=== PATIENT | female | born 1990 | race Caucasian/White ===

== ENCOUNTER 2021-11-09 11:40 | Emergency (ER) | payer MEDICAID, SELFPAY ==
[2021-11-09 11:41] VITALS: BP 162/93; PULSE 133; RESP 18; TEMP 36.3; O2SAT 98; BMI 24.8
--- NOTE | 2021-11-09 12:04 | US_ITS ---
STUDY: FIRST TRIMESTER OBSTETRICAL ULTRASOUND REASON FOR EXAM: Female, 31 years old preg, bleeding LMP: Unknown TECHNIQUE: Transvaginal TECHNICAL QUALITY: Adequate. PRIOR ULTRASOUND: None. FINDINGS: There is visualization of a single gestational sac in a normal intrauterine position. The mean sac diameter (MSD) measures 1.64 cm, indicating an estimated gestational age (EGA) of 6 weeks, 4 days. The gestational sac shape is within normal limits. There is a visualized yolk sac. The yolk sac measures 3 mm. The placenta is non-visualized. There is visualization of a live embryo. The crown-rump length (CRL) measures 6 mm, indicating an estimated gestational age (EGA) of 6 weeks, 3 days. There is demonstrated cardiac activity with a heart rate of 122 bpm. The estimated gestation age (EGA) by US is 6 weeks, 4 days. The estimated date of delivery (REBECCA) by US is 07/01/2022. The uterus measures 9.1 cm x 6.9 cm x 5.3 cm. There is no demonstrated uterine fibroid. The cervix is closed. The right ovary measures 5.8 cm x 3.3 cm x 2.2 cm. There is a 2.2 cm x 2.4 cm x 2.6 cm right ovarian cyst. There is no visualized right adnexal mass or complex lesion. The left ovary measures 3.2 cm x 2.4 cm x 1.8 cm. There is no left ovarian cyst. There is no visualized left adnexal mass or complex lesion. There is no fluid in the cul de sac. US/Transvaginal w/Preg US IMPRESSION: Single live intrauterine gestation with mean gestational age of 6 weeks and 4 days. There is a 2.2 cm x 2.4 sono a 2.6 cm right ovarian cyst. Electronically Signed: Karel Morris MD at 14:51 EDT ,
--- NOTE | 2021-11-09 12:05 | ED.VIS.FEGU ---
HPI HPI - Female History of Present Illness Chief Complaint: Vag Bld, Preg Informant: patient Bleeding Issue: Positive for Vaginal bleeding Onset: Yesterday Context: Gradual Onset Timing: Intermittent Current Severity: Mild Associated Symptoms Associated Symptoms: Positive for Frequency; Negative for Dysuria, Urgency and Hematuria Last known menstrual period: september P: 1 Ab: 4 Narrative Narrative: Patient presents with early and gradual onset of light bleeding yesterday. She has had some morning sickness for several weeks but no other systemic symptoms. No lightheadedness or syncope. Mild periumbilical abdominal pain off and on, no pain lower. Does not have an OB yet. Lives in [place]. PFSH PFSH Medical History delivery delivered Chronic back pain Goiter Guillain-[place] Hypertension Hyperthyroidism Kidney stones Neuropathy Pancreatitis Smoker Medical History no medical history no medical history Allergy/AdvReac Type Severity Reaction Status Date / Time gabapentin Allergy Other Verified 11/09/21 11:44 pregabalin [From Lyrica] Allergy Other Verified 11/09/21 11:44 Social History Smoking Status: Current some day smoker tobacco type: cigarettes ROS ROS ED Constitutional Constitutional ED: Denies chills or fever(s) Eyes Eyes: Denies change in vision or diplopia ENT ENT ED: Denies rhinorrhea or sore throat Cardiovascular Cardiovascular: Denies chest pain or palpitations Respiratory/Chest Respiratory/Chest: Denies cough or dyspnea Gastrointestinal Gastrointestinal: Reports abdominal pain, nausea and vomiting; Denies diarrhea Genitourinary Genitourinary ED: Reports urinary frequency and vaginal bleeding; Denies dysuria or hematuria Musculoskeletal Musculoskeletal: Denies back pain or neck pain Integumentary Denies abscess or rash Neurologic Neurologic: Denies headache(s), paresthesias or weakness Psychiatric Psychiatric: Denies hallucinations or suicidal thoughts EXAM Physical Exam Const Vital Signs: 11/09/21 11:41 Temperature 97.4 F L Temperature Source Temporal Pulse Rate 133 H Respiratory Rate 18 Blood Pressure 162/93 H Blood Pressure Mean 116 Pulse Ox 98 Oxygen Delivery Method Room Air Positive well nourished and well developed General Appearance ED: well developed and NAD HEENT Reports moist mucous membranes normocephalic and atraumatic Eyes PERRL and EOMs intact bilaterally Neck full ROM and supple Resp normal respiratory effort and clear to auscultation bilaterally Cardio regular rate, regular rhythm and no murmurs GI non-tender and non-distended Auscultation: normoactive bowel sounds Palpation: soft Speculum Exam - Vagina: vaginal bleeding Back/Spine no CVA tenderness General Back: other FROM Extremity normal to inspection General Extremety ED: Negative for edema, pulses abnormal or tenderness General Extremity: Negative for edema or pulses abnormal Neuro oriented x3, CN's II-XII intact bilaterally, no sensory deficits noted and gait normal Sensorium / Orientation: awake and alert Motor Exam: strength 5/5 throughout Psych mental status grossly normal, thought process normal, cooperative and denies suicidal ideation Mood & Affect: anxious Skin no rashes or lesions noted and no wounds MDM MDM MDM Narrative Medical decision making narrative: Patient has never been here so we do not have a record of her blood type. Therefore beta hCG quantitative and an ABO Rh were obtained in addition to me doing a bedside ultrasound. It shows a gestational sac with a double decidual sign, it is measuring approximately 6 weeks 5 days. I do not visualize a pole with our small ED screening ultrasound. She does not have any lateralizing pelvic tenderness or symptoms to suggest a ruptured ectopic. In discussing this with the patient and multiple options including close outpatient follow-up with a 48-hour quantitative hCG and ultrasound in the office which she has already had, verifying intrauterine , she wants an ultrasound now, so since ultrasound is available at this hour it was obtained. It shows a single live intrauterine , her urine shows no pyuria, and her blood type is AB+ so she does not require RhoGam. [place] hCG [place], [address]. At this time she is discharged with referral to local OB and/or encouraged to look for one in her home area. Lab Data Attestation: I reviewed the patient's lab results. Labs: Laboratory Results - last 24 hr 11/09/21 11/09/21 11/09/21 12:20 12:20 12:45 HCG, Quant [id number] H Urine Color Yellow Urine Clarity Clear Urine pH 7.0 Ur Specific [place] 1.010 Urine Protein Negative Urine Glucose (UA) Normal Urine Ketones 5 H Urine Occult Blood 10 H Urine Nitrite Negative Urine Bilirubin Negative Urine Urobilinogen Normal Ur Leukocyte Esterase 25 H Urine RBC 0-5 SEEN Urine WBC 0-5 SEEN Ur Squamous Epith Cells 0-5 SEEN Urine Bacteria 1+ Urine Mucus 0 SEEN Blood Type AB POSITIVE Radiography Diagnostic Testing: Clinical Impression(s) from Imaging Studies Obstetrics Ultrasound 11/09/21 12:04 IMPRESSION: Single live intrauterine gestation with mean gestational age of 6 weeks and 4 days. There is a 2.2 cm x 2.4 sono a 2.6 cm right ovarian cyst. Electronically Signed: Karel Morris MD at 14:51 EDT , Discharge Plan Triage Chief Complaint: Vag Bld, Preg ED Provider: Terrence More Dx/Rx/DC Orders Clinical Impression: , threatened Instructions: ED Possible Miscarriage ... Primary Care Provider: Care Physician,No Primary Referrals: Ashli Jose DO [STAFF PHYSICIAN] - (Or OB clinic/provider of your choice where you live) NOT,DEFINED [NON-STAFF] - Disposition Disposition: Home, Self Care
[2021-11-09 12:55] LABS: Mucous, Urine 0 SEEN /hpf (<or=2+)
[2021-11-09 12:57] LABS: Color, Urine Yellow (Yellow); Glucose, Dipstick Normal (Normal); Ketone-Dipstick 5 mg/dl (Negative); Leukocyte Esterase-Dipstick 25 /ul (Negative); Nitrite-Dipstick Negative (Negative); Occult Blood-Urine 10 /ul (Negative); Protein-Dipstick Negative (Negative); Urine Bilirubin Dipstick Negative (Negative); Urine Clarity Clear (Clear); Urine Urobilinogen Normal (Normal)
[2021-11-09 13:16] LABS: Bacteria 1+ /hpf (None Seen); Red Blood Cells-Urine 0-5 SEEN /hpf (0-5); Squamous Epithelial Cells - UA 0-5 SEEN /hpf (5-10); White Blood Cells 0-5 SEEN /hpf (0-5)
[2021-11-09 13:38] LABS: hCG Titer Quant., Serum 21460 mIU/mL (1-3)
== END 2021-11-09 15:09 | disposition home or self-care (01) ==
PROVIDERS: Emergency Provider Emergency Medicine; Visit Provider Emergency Medicine
DX: O20.0 Threatened abortion (principal); O99.331 Smoking (tobacco) complicating pregnancy, first trimester; F17.210 Nicotine dependence, cigarettes, uncomplicated; O34.81 Maternal care for other abnormalities of pelvic organs, first trimester; N83.201 Unspecified ovarian cyst, right side; Z3A.01 Less than 8 weeks gestation of pregnancy
CPT/HCPCS: 76817; 81001; 84702; 86900; 86901; 99282; A4216